=== PATIENT | male | born 1930 | race Caucasian/White ===

== ENCOUNTER 2021-09-18 18:32 | Emergency (ER) | payer OTHER ==
--- OUTSIDE RECORDS SUMMARY | 2021-09-18 18:34 | XMS REPORT | Continuity of Care Document ---
:1930 Author Organization [facility] t Address [address] [place] [address] Care Team Providers Name Role Phone PCP, PATIENT DOES NOT HAVE A Primary Care Physician UnavailPatti Cruz Attending Clinician Lorene_MARY Attending Clinician Unavailable Patti WALLS Attending Clinician Unavailable Irlanda_MARY Attending Clinician Unavailable Bianca Whiting MD Attending Clinician Bianca WHITING Attending Clinician Unavailable Lorene_MARY Admitting Clinician Unavailable Stephy_A_MARY Admitting Clinician Unavailable Payers Payer Name Policy Type Policy Number Effective Date Expiration Date S michell [facility] [place] - [id number] 2019 [place] 00:00:00 (MEDICARE REPLACEMENT/ADVANT AGE - HMO) Problems Condition Condition Condition Status Onset Resolution Last Treating Co mments Source Name Details Category Date Date Treatment Clinician Date Diabetes Diabetes Problem Active Uriarte ge mellitus Mellitus 2-11 Family 00:00: Practic 00 e 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, Episodes, 00 e mild Mild Pain in Pain in Problem Active [place] left knee Left Knee 08-30 Fami ly 00:00: Practic 00 e Hyperlipid Hyperlipid Problem Active [place] emia emia 2- Family 00:00: Practic 00 e Essential Essential Problem Active Gabo lily hypertensi Hypertensi 2-05 Fa judy on on 00:00: Practic 00 e Hyperglyce Hyperglyce Problem Active [facility] messi due to messi Due to 07-23 judy type 2 Type 2 00:00: Practic diabetes Diabetes 00 e mellitus Mellitus No known No known Disease Unive rs active active ity of problems problems [facility] [place] [facility] Allergies, Adverse Reactions, Alerts Allergy Allergy Status Severity Reaction(s) Onset Inactive Treating Comm ents Source Name Type Date Date Clinician NO KNOWN Drug Active Univers ALLERGIE Class ity of S [facility] Social History Social Habit Start Date Stop Date Quantity Comments Source History SDCA [facility] o f Alcohol Comment [place] [facility] History SDOH University o f Alcohol Std [place] [facility] Drinks [facility] History [facility]CA [facility] o f Alcohol Binge [place] [facility] Alcohol intake 2020-11-15 2020-11-15 Lifetime University of 00:00:00 00:00:00 non-drinker [place] [facility] (finding) Branch Tobacco use and 2019-11-25 2019-11-25 Never used Universit y of exposure 00:00:00 00:00:00 [place] [facility] History SDOH 2019-11-25 2019-11-25 1 University o f Alcohol Frequency 00:00:00 00:00:00 [facility] edical Century Sex Assigned At [birth year] Universit y of 00:00:00 00:00:00 [facility] [place] [facility] Smoking Status Start Date Stop Date Source Never smoker [facility] Medications Ordered Filled Start Stop Current Ordering Indication Dosage Frequency Signature Comments Components Source Medication Medication Date Date Medication? Clinician (SIG) Name Name MELOXICAM 2020-07 Yes [id number] 15mg TAKE 1 Univers 15 mg 0-13 9104 TABLET BY ity of tablet 00:00: MOUTH [place] 00 DAILY Medical Branch MELOXICAM 2020- No [id number] 15mg TAKE 1 Univers 15 mg 4-20 10-13 9104 TABLET BY ity of tablet 00:00: 00:00 MOUTH [place] 00 :00 DAILY Medical Branch meloxicam 2019-07- No 15mg Take 15 mg U nivers 15 mg TbDL 1-02 10-13 by mouth ity of 00:00: 00:00 daily. [place] 00 : Medical Branch diclofenac 2020- No [id number] 75mg Take 1 Univers 75 mg EC 3-19 10-13 9104 tablet by ity o f tablet 00:00: 00:00 mouth 2 [place] 00 :00 (two) Medical times Branch daily with meals. diclofenac No 75mg Take 1 Univ ers 75 mg EC 3-19 10-13 tablet by ity o f tablet 00:00: 00:00 mouth 2 [place] 00 :00 (two) Medical times Branch daily with meals. metFORMIN Yes 500mg Take 500 Uni vers 500 mg 3-09 mg by ity of tablet 00:00: mouth [place] 00 daily. Medical Branch Fenofibrate Yes 1{tbl} Take 1 Un josie 160 mg 2-21 tablet by ity of tablet 00:00: mouth [place] 00 daily. Medical Branch lovastatin Yes Univers 10 mg 2-21 ity of tablet 00:00: [place] 00 Medical Branch ONETOUCH Yes 1 ONCE Univers DELICA PLUS 2-10 DAILY USE ity of LANCET 33 00:00: [place] gauge Misc 00 DIRECTED Medic al Branch ONETOUCH Yes USE Univers VERIO strip 1-17 DIRECTED ity of 00:00: EVERY DAY [place] 00 Medical Branch fenofibrate fenofibrate No 1 Q1D fenofibrat [place] 160 mg 160 mg e 160 mg Family tablet Take tablet Take tablet Practic 1 tablet 1 tablet Take 1 e every day every day tablet by oral by oral every day route. route. by oral route. lovastatin lovastatin No 1 Q1D lovastatin [place] 10 mg 10 mg 10 mg Family tablet Take tablet Take tablet Practic 1 tablet 1 tablet Take 1 e every day every day tablet by oral by oral every day route. route. by oral route. meloxicam meloxicam No 1 Q1D meloxicam [place] 15 mg 15 mg 15 mg Family tablet Take tablet Take tablet Practic 1 tablet 1 tablet Take 1 e every day every day tablet by oral by oral every day route. route. by oral route. metformin metformin No 1 BID metformin [place] 500 mg 500 mg 500 mg Family tablet Take tablet Take tablet Practic 1 tablet 1 tablet Take 1 e twice a day twice a day tablet by oral by oral twice a route. route. day by oral route. Procedures This patient has no known procedures. Encounters Start End Encounter Admission Attending Care Care Encounter Source Date/Time Date/Time Type Type Clinicians Facility Department ID 2021-05-03 2021-05-03 BRANDYN Henderson [id number] Univers 00:00:00 00:00:00 [facility] 350..13.10 it y of Surgical [id number] Joey as Specialti [id number] Id dical es 198 Branch [place] 2020-12-20 2020-12-20 Outpatient Miller_S_AH VFP VFP [id number] [facility] 05:03:00 05:03:00 [id number] Family Practic e 2020-11-15 2020-11-15 Outpatient Fernando WALLS [facility] [id number] Univers 10:45:00 10:45:00 RENETTA [id number] [facility] 2020-11-15 2020-11-15 Outpatient Fernando WALLS [facility] [id number] Univers 10:45:00 10:45:00 RENETTA [facility] 2020-09-13 2020-09-13 Outpatient Osmany-Eddieo VFP [facility] 79 [facility] 07:12:00 07:12:00 _A_AH [id number] Family Practic e 2020-09-08 2020-09-08 Outpatient Osmany-Eddieo VFP VFP [id number] [facility] 05:59:00 05:59:00 _A_AH [id number] Family Practic e 2020-09-02 2020-09-02 [id number] 00:00:00 00:00:00 GagandeepiFrat Wars 350..13.10 Surgical [id number] Specialti [id number] es 198 [place] 2020-09-01 2020-09-01 Nelda [facility] [place] - [id number] V illage 00:00:00 00:00:00 OsmanyEddie [facility] 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 2020-05-31 2020-05-31 Telephone Henok [facility] [id number] 00:00:00 00:00:00 [facility] Cisiv 350..13.10 Surgical [id number] Specialti [id number] es 198 [place] 2020-05-19 2020-05-19 [facility] [id number] 00:00:00 00:00:00 [facility] [id number] Surgical [id number] Special [id number] es 198 [place] 2019-12-29 2019-12-29 Outpatient Osmany-Mbayo VFP VFP [id number] 193 [facility] 10:28:00 10:28:00 _A_AH [id number] Family Practic e 2019-12-18 2019-12-18 Outpatient Osmany-Mbayo VFP VFP [id number] 193 [facility] 07:53:00 07:53:00 _A_AH [id number] Family Practic e 2019-11-30 2019-11-30 Outpatient Osmany-Mbayo VFP VFP [id number] 193 [facility] 11:06:00 11:06:00 _A_AH [id number] Family Practic e 2019-11-25 2019-11-25 [facility] [id number] Univers 15:30:00 15:30:00 GAGANDEEP [id number] [facility] 2019-11-25 2019-11-25 [facility] [id number] Univers 15:30:00 15:30:00 [facility] 2019-11-24 2019-11-24 Nelda P [place] - [id number] V illage 00:00:00 00:00:00 Osmany-Mbay [place] 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 2019-10-09 2019-10-09 Outpatient Osmany-Mbayo VFP VFP [address] [place] [address] 04:51:00 04:51:00 _A_AH [id number] Family Practic e 2019-10-08 2019-10-08 [facility] [id number] Univers 08:39:03 23:59:00 [facility] Results This patient has no known results.
[2021-09-18] MEDS ORDERED: TETANUS & DIPHTHERIA TOX,ADULT 0.5 ML VIAL ONE (19:25)
[2021-09-18] MEDS ORDERED: LIDOCAINE 1% MPF 5 ML VIAL ONE (19:41)
--- NOTE | 2021-09-18 21:16 | RAD REPORT ---
EXAM DESCRIPTION: CT - Facial Bones W/ Mpr - 09/18/2021 8:53 pm CLINICAL HISTORY: Facial injury status post fall. Facial pain COMPARISON: None TECHNIQUE: Computed axial tomography of the face was obtained. Coronal and sagittal reconstruction w as performed. All CT scans are performed using dose optimization technique as appropriate and may include automated exposure control or mA/KV adjustment according to patient size. FINDINGS: A fracture is not visualized. Nasal septum deviated towards the left A TMJ dislocation is not noted. The globes are intact. Fluid within the sinuses is not seen. IMPRESSION: A fracture is not seen
--- NOTE | 2021-09-18 21:23 | RAD REPORT ---
EXAM DESCRIPTION: CT - Head C Spine Mpr Wo Con - 09/18/2021 8:53 pm CLINICAL HISTORY: Head and neck injury status post fall. Head and neck pain COMPARISON: None. TECHNIQUE: Computed axial tomography of the head and cervical spine was obtained. Sagittal and coronal reconstruction was performed. All CT scans are performed using dose optimization technique as appropriate and may include automated exposure control or mA/KV adjustment according to patient size. FINDINGS: An intracranial bleed is not seen. The ventricles are normal in caliber. An extra-axial fl uid collection is not noted.Fluid within the visualized sinuses and mastoids is not seen A cervical fracture is not visualized. No dislocation is noted. Spondylosis involves IMPRESSION: No acute intracranial abnormality is seen. A cervical fracture is not visualized. If the patient continues to have symptoms to suggest intracra nial /spinal cord pathology then MRI would be recommended
[2021-09-18] MEDS ORDERED: DERMABOND SKIN ADHESIVE TOP ONE (21:28)
--- NOTE | 2021-09-18 21:52 | EDPHYS ---
Physician Documentation [facility] Name: Bk Garces Age: 89 yrs Sex: Male : 1930 Arrival Date: 09/18/2021 Time: 18:33 Bed Treatment Private MD: Kevin Guo ED Physician Jorge Hardy HPI: 09/18 19:36 This 89 yrs old Male presents to ER via Ambulatory with complaints of Fall Injury, pm1 Laceration To Nose, Laceration To Scalp/Face. 19:36 Details of fall: The patient fell from an upright position, while standing, and struck pm1 a concrete surface. Onset: The symptoms/episode began/occurred just prior to arrival. Associated injuries: The patient sustained injury to the head, laceration, of the forehead, abrasion to nose. Severity of symptoms: in the emergency department the symptoms are unchanged. The patient has not experienced similar symptoms in the past. The patient has not recently seen a physician. Negative for LOC, headache, neck pain. Patient was working on his vehicle and he tripped on his mat that he was using for his chronic knee pain. Patient hit his head on the concrete driveway. Historical: - Allergies: 18:52 No Known Allergies; jh6 - PMHx: 18:52 Hypertensive disorder; Diabetes mellitus; 6 - Immunization history:: Client reports receiving the 2nd dose of the Covid vaccine, Client reports having NOT received the Covid vaccine. - Social history:: Smoking status: Patient denies any tobacco usage or history of. - Immunization history: Last tetanus immunization: > 10 years ago. ROS: 19:36 Constitutional: Negative for fever, chills, and weight loss, Cardiovascular: Negative pm1 for chest pain, palpitations, and edema, Respiratory: Negative for shortness of breath, cough, wheezing, and pleuritic chest pain, Abdomen/GI: Negative for abdominal pain, nausea, vomiting, diarrhea, and constipation, MS/Extremity: Negative for injury and deformity, Neuro: Negative for headache, weakness, numbness, tingling, and seizure. 19:36 Skin: Positive for laceration to forehead, abrasion to nose. 19:36 All other systems are negative. Exam: 19:36 Constitutional: This is a well developed, well nourished patient who is awake, alert, pm1 and in no acute distress. 19:36 Head/face: Noted is no obvious of injury or deformity except abrasion(s), that are moderate, of the nose, contusion, of the bridge of nose, a laceration(s), of the stellated to forehead. 19:36 Eyes: Exam is negative for acute changes, Periorbital structures: appear normal, Extraocular movements: no acute changes, Conjunctiva: no acute changes, no injection. 19:36 ENT: Exam is negative for acute changes, Mouth: Lips: normal, moist, Oral mucosa: normal, pink and intact, moist. 19:36 Cardiovascular: Exam negative for acute changes, Rate: normal, Rhythm: regular, Pulses: no pulse deficits are appreciated. 19:36 Respiratory: Exam negative for acute changes, respiratory distress, shortness of breath. 19:36 Musculoskeletal/extremity: Exam is negative for acute changes, Extremities: all appear grossly normal, with no appreciated pain with palpation. 19:36 Skin: Appearance: normal except for affected area, injury, as noted on head exam, small abrasion to left 5th finger. 19:36 Neuro: Exam negative for acute changes, Orientation: is normal, Mentation: is normal, Motor: is normal, moves all fours. Vital Signs: 18:50 BP 167 / 72; Pulse 68; Resp 18; Temp 97.6(TE); Pulse Ox 100% ; Weight 82.1 kg; Height 5 jh6 ft. 9 in. (175.26 cm); Pain 3/10; 21:54 BP 167 / 86; Pulse 78; Resp 18; Pulse Ox 96% on R/A; lr4 18:50 Body Mass Index 26.73 (82.10 kg, 175.26 cm) jh6 [place] Coma Score: 19:18 Eye Response: spontaneous(4). Verbal Response: oriented(5). Motor Response: obeys lr4 commands(6). Total: 15. Trauma Score (Adult): 19:16 Eye Response: spontaneous(1); Verbal Response: oriented(1); Motor Response: obeys lr4 commands(2); Systolic BP: > 89 mm Hg(4); Respiratory Rate: 10 to 29 per min(4); [place] Score: 15; Trauma Score: 12 Laceration: 21:49 Wound Repair of 5cm ( 2.0in ) subcutaneous laceration to forehead. Irregularly shaped.. pm1 Distal neuro/vascular/tendon intact. Anesthesia: Local anesthetic administered with 3 mls of 1% lidocaine. Wound prep: Extensive cleansing with hibiclenz by me, Wound irrigation with saline by me, Wound explored extensively, Copious irrigation. Skin closed with 9 5-0 Prolene using simple sutures and sterile technique. Dressed with 4x4's, non-adherent dressing. Patient tolerated well. MDM: 19:04 Patient medically screened. [facility] 21:49 Data reviewed: vital signs. Data interpreted: Pulse oximetry: on room air is 100 %. pm1 Interpretation: normal. Counseling: I had a detailed discussion with the patient and/or guardian regarding: the historical points, exam findings, and any diagnostic results supporting the discharge/admit diagnosis, radiology results, the need for outpatient follow up. 09/18 20:25 Order name: CT Head C Spine; Complete Time: 21:48 pm1 09/18 19:21 Order name: Dressing - Wound; Complete Time: 19:39 pm1 09/18 20:25 Order name: CT Facial Bones W/O Con; Complete Time: 21:48 pm1 09/18 19:21 Order name: Gloves, Sterile; Complete Time: 19:39 pm1 09/18 19:21 Order name: Prolene, Sutures; Complete Time: 19:39 pm1 09/18 19:21 Order name: Setup Suture Tray; Complete Time: 19:39 pm1 Administered Medications: 19:24 Drug: Tetanus-Diphtheria Toxoid Adult 0.5 ml {Computer Tester: [employer]. Exp: lr4 12/09/2022. Lot #: [id number]. } Route: IM; Site: left deltoid; 19:39 Follow up: Response: No adverse reaction lr4 19:39 Drug: Lidocaine (1 %) 5 ml {Note: given by provider.} Volume: 5 ml; Route: Infiltration;lr4 19:39 Follow up: Response: No adverse reaction lr4 Disposition Summary: 09/18/21 21:52 Discharge Ordered Location: Home pm1 Problem: new pm1 Symptoms: have improved pm1 Condition: Stable pm1 Diagnosis - Laceration forehead pm1 - Abrasion and contusion nose pm1 - Fall on same level, unspecified pm1 Followup: pm1 - With: Emergency Department - When: As needed - Reason: Worsening of condition Followup: pm1 - With: Private Physician - When: 7 - 10 days - Reason: Recheck today's complaints, Continuance of care, Staple/Suture removal, Re-evaluation by your physician Discharge Instructions: - Discharge Summary Sheet pm1 - Abrasion pm1 - Fall Prevention in the Home, Adult pm1 - Facial Laceration pm1 Forms: - Medication Reconciliation Form pm1 - Thank You Letter pm1 - Antibiotic Education pm1 - Prescription Opioid Use pm1 Prescriptions: - Cephalexin 500 mg Oral Capsule - take 1 capsule by ORAL route every 8 hours for 10 days; 30 capsule; Refills: 0, pm1 Product Selection Permitted Addendum: 09/21/2021 09:24 Co-signature as Attending Physician, Jorge Hardy MD I agree with the assessment and c hunter plan of care. Signatures: Dispatcher [employer] EDJorge Gipson MD MD cha Marinas, Patrick, CONTACT AGENT CONTACT AGENT pm1 Shani Fong RN RN jh6 Brigid Bourgeois RN RN lr4 Corrections: (The following items were deleted from the chart) 09/18 19:40 19:22 Head C Spine MPR Wo Con+CT.RAD.BRZ ordered. [facility] ED[facility]
--- NOTE | 2021-09-18 21:52 | ER ---
Nurse's Notes [facility] Name: Bk Garces Age: 89 yrs Sex: Male : 1930 Arrival Date: 09/18/2021 Time: 18:33 Bed Treatment Private MD: Kevin Guo Diagnosis: Laceration forehead;Abrasion and contusion nose;Fall on same level, unspecified Presentation: 09/18 18:50 Chief complaint: Patient states: tripped over carpet while working on truck. - loc and 6 reports no blood thinners. small lac to bridge of nose and 2by 2 cm lac to middle of forehead. Coronavirus screen: Vaccine status: Patient reports receiving the 2nd dose of the covid vaccine. Ebola Screen: Patient denies travel to an Ebola-affected area in the 21 days before illness onset. 18:50 Method Of Arrival: Ambulatory [facility] 19:15 Acuity: MERON 3 lr4 19:16 Care prior to arrival: None. Mechanism of Injury: Fall from standing position. tripped lr4 over carpet, no loc. Trauma event details: Injury occurred: at home. Injury occurred: September 18, 2021 Injury occurred at: 18:30. 19:17 Risk Assessment: Do you want to hurt yourself or someone else? Patient reports no lr4 desire to harm self or others. 19:17 Initial Sepsis Screen: Does the patient meet any 2 criteria? No. Patient's initial lr4 sepsis screen is negative. Does the patient have a suspected source of infection? No. Patient's initial sepsis screen is negative. Onset of symptoms was September 18, 2021. Triage Assessment: 18:53 General: Appears in no apparent distress. well groomed, well developed, Behavior is jh6 calm, cooperative. Pain: Complains of pain in dorsal aspect of middle phalanx of left little finger Pain currently is 3 out of 10 on a pain scale. Quality of pain is described as aching. Injury Description: Laceration sustained to forehead. Trauma Activation: Not Applicable Physician: ED Physician; Name: ; Notified At: ; Arrived At: Physician: General Surgeon; Name: ; Notified At: ; Arrived At: Physician: Radiology; Name: ; Notified At: ; Arrived At: Physician: Respiratory; Name: ; Notified At: ; Arrived At: Physician: Lab; Name: ; Notified At: ; Arrived At: Historical: - Allergies: 18:52 No Known Allergies; jh6 - PMHx: 18:52 Hypertensive disorder; Diabetes mellitus; 6 - Immunization history:: Client reports receiving the 2nd dose of the Covid vaccine, Client reports having NOT received the Covid vaccine. - Social history:: Smoking status: Patient denies any tobacco usage or history of. - Immunization history: Last tetanus immunization: > 10 years ago. Screenin:13 Abuse screen: Denies threats or abuse. Nutritional screening: No deficits noted. lr4 Tuberculosis screening: No symptoms or risk factors identified. Fall Risk Fall in past 12 months (25 points). No secondary diagnosis (0 pts). No IV (0 pts). Ambulatory Aid- None/Bed Rest/Nurse Assist (0 pts). Gait- Normal/Bed Rest/Wheelchair (0 pts) Mental Status- Oriented to own ability (0 pts). Total Santiago Fall Scale indicates Low Risk Score (25-44 pts). Frequent Obs/Assesments occuring Family Present and informed to notify staff if they need to leave bedside As available Patient and Family Educated on Fall Prevention Program and strategies. Primary Survey: 19:14 NO uncontrolled hemorrhage observed. A: The patient is alert. Airway: patent. lr4 Breathing/Chest: Respiratory pattern: regular, Respiratory effort: spontaneous, unlabored. Circulation: Heart tones present. Pulses: palpable right radial artery and left radial artery. Skin color: pink, Skin temperature: warm, dry. Disability Alert. Exposure/Environment: Obvious injury(ies) are noted at this time: laceration and abrasions to forehead and nose. Reassessment Airway Airway Patent Breathing/Chest Respiratory pattern Regular Respiratory effort Spontaneous Unlabored Circulation Pulses Palpable Color [place] Temperature Warm Dry Disability Alert. Assessment: 19:10 General: Appears in no apparent distress. comfortable, Behavior is calm, cooperative. lr4 Pain: Complains of pain in face and left hand Pain currently is 2 out of 10 on a pain scale. Quality of pain is described as aching, Pain began 1 hour ago. Neuro: No deficits noted. Neuro: Reports NO LOC. Denies weakness dizziness, headache. Cardiovascular: No deficits noted. Respiratory: No deficits noted. Derm: Multiple abrasions to center face at nose and upper lip area, small abrasion to L hand 5th digit Reports pain that is 2 out of 10 on a pain scale. Musculoskeletal: No deficits noted. Injury Description: Abrasion sustained to nose and Left 5th digit Laceration sustained to forehead. 21:50 Reassessment: Pt departed ed ambulatory with son and all personal effects, pt in nad lr4 Patient states feeling better. Patient states symptoms have improved. Vital Signs: 18:50 BP 167 / 72; Pulse 68; Resp 18; Temp 97.6(TE); Pulse Ox 100% ; Weight 82.1 kg; Height 5 jh6 ft. 9 in. (175.26 cm); Pain 3/10; 21:54 BP 167 / 86; Pulse 78; Resp 18; Pulse Ox 96% on R/A; lr4 18:50 Body Mass Index 26.73 (82.10 kg, 175.26 cm) 6 Osvaldo Coma Score: 19:18 Eye Response: spontaneous(4). Verbal Response: oriented(5). Motor Response: obeys lr4 commands(6). Total: 15. Trauma Score (Adult): 19:16 Eye Response: spontaneous(1); Verbal Response: oriented(1); Motor Response: obeys lr4 commands(2); Systolic BP: > 89 mm Hg(4); Respiratory Rate: 10 to 29 per min(4); Osvaldo Score: 15; Trauma Score: 12 ED Course: 18:33 Patient arrived in ED. as 18:33 Kevin Guo MD is Private Physician. as 18:53 Arm band placed on right wrist. 6 18:57 Rj Mann NP is PHCP. pm1 18:58 Brigid Bourgeois, ELIAN is Primary Nurse. lr4 19:04 Jorge Hardy MD is Attending Physician. [facility] 19:16 Triage completed. lr4 19:16 No provider procedures requiring assistance completed. lr4 19:18 Patient has correct armband on for positive identification. Bed in low position. Call lr4 light in reach. Adult w/ patient. Verbal reassurance given. cleaned wounds and abrasions, and covered with neosporin. 19:18 Patient maintains SpO2 saturation greater than 95% on room air. lr4 19:19 Thermoregulation: none needed, normothermic. lr4 20:53 CT Head C Spine In Process Unspecified. EDMS 20:53 CT Facial Bones W/O Con In Process Unspecified. EDMS 21:50 Patient did not have IV access during this emergency room visit. lr4 Administered Medications: 19:24 Drug: Tetanus-Diphtheria Toxoid Adult 0.5 ml {Chief Guard: [place]. Exp: lr4 12/09/2022. Lot #: [id number]. } Route: IM; Site: left deltoid; 19:39 Follow up: Response: No adverse reaction lr4 19:39 Drug: Lidocaine (1 %) 5 ml {Note: given by provider.} Volume: 5 ml; Route: Infiltration;lr4 19:39 Follow up: Response: No adverse reaction lr4 Intake: 19:19 PO: 0ml; Total: 0ml. lr4 Outcome: 19:17 Condition: stable lr4 19:18 Patient's length of stay was not longer than 2 hours. lr4 21:49 Discharged to home ambulatory. lr4 21:50 Discharge instructions given to patient, family. lr4 21:52 Discharge ordered by . pm1 22:08 Patient left the ED. lr4 Signatures: Dispatcher [employer] [facility] Jorge Hardy MD MD cha Martinez, Amelia as Marinas, Patrick, CONSERVATION OFFICER CONSERVATION OFFICER pm1 Shani Fong, RN RN jh6 Brigid Bourgeois RN RN lr4
[2021-09-18 22:44] VITALS: TEMP 97.6
[2021-09-18 22:45] VITALS: BP 167/86; O2SAT 96
== END 2021-09-18 22:08 | disposition home or self-care (01) ==
LOC: ER 18:32
PROC: 0JQ10ZZ Repair Face Subcutaneous Tissue and Fascia, Open Approach (ICD-10-PCS; principal; 2021-09-18)
DX: S01.81XA Laceration without foreign body of other part of head, initial encounter (principal); W18.30XA Fall on same level, unspecified, initial encounter; Z23 Encounter for immunization; E11.9 Type 2 diabetes mellitus without complications; I10 Essential (primary) hypertension
CPT/HCPCS: 70450; 70486; 72125; 76377; 90471; 90714; 99284